=== PATIENT | female | born 1970 | race African-American/Black ===

== ENCOUNTER 2023-01-25 23:58 | Emergency (ER) | payer MEDICAID ==
[~2023-01-25] VITALS: Ht 160 cm; Wt 72.7 kg
[2023-01-26] MEDS ORDERED: IOHEXOL 350 MG/ML 100ML IJ ONE (00:22)
[2023-01-26 00:23] LABS: Basophils # (auto) 0.1 10 ^3/uL (0-0.2); Basophils % (auto) 0.5 % (0.0-2.0); Eosinophils # (auto) 0 10 ^3/uL (0-0.8); Eosinophils % (auto) 0.1 % (0.0-7.0); Hematocrit 44.7 % (36.0-46.0); Hemoglobin 15.4 g/dL (12.2-16.2); Lymphocytes # (auto) 2.6 10 ^3/uL (0.4-5.4); Lymphocytes % (auto) 17.5 % (10.0-50.0); Mean Corpuscular Hemoglobin 30.9 pg (28.0-32.0); Mean Corpuscular Hgb Conc. 34.4 g/dL (32.0-36.0); Mean Corpuscular Volume 89.9 fL (80.0-100.0); Monocytes # (auto) 0.8 10 ^3/uL (0-1.3); Monocytes % (auto) 5.2 % (0.0-12.0); Neutrophils # (auto) 11.2 10 ^3/uL (1.6-8.6); Neutrophils % (auto) 76.7 % (37.0-80.0); Red Blood Cells 4.97 10^6/uL (4.0-5.20); Red Cell Distribution Width 14.7 % (11.8-14.3); White Blood Cell 14.7 10^3/uL (4.4-10.8)
[2023-01-26] MEDS ORDERED: LORazepam 2MG/ML-1ML VIAL IV ONE (00:30)
[2023-01-26 00:45] LABS: BUN/Creatinine Ratio 11.8 (10.0-20.0); Calcium 11.9 mg/dL (8.5-10.1); Potassium 4.3 mmol/L (3.5-5.1)
[2023-01-26 00:48] LABS: Bilirubin, Total 0.3 mg/dL (0.2-1.0); Total Protein 8.9 g/dL (6.4-8.2)
[2023-01-26] MEDS ORDERED: DexAMETHasone SOD PHOS 10MG/1ML VIAL INJ IV ONE (02:30)
[2023-01-26 03:50] LABS: Alcohol, Urine < 3.0 mg/dL (0-10); Amphetamine Screen, Urine NEGATIVE (NEGATIVE); Barbiturate Scree,Urine NEGATIVE (NEGATIVE); Benzodiazephine Screen, Urine NEGATIVE (NEGATIVE); Cannabinoid Screen, Urine POSITIVE (NEGATIVE); Cocaine Screen, Urine POSITIVE (NEGATIVE)
[2023-01-26 03:58] LABS: Opiate Scree,Urine NEGATIVE (NEGATIVE); Phencyclidine Screen, Urine NEGATIVE (NEGATIVE)
[2023-01-26 04:11] LABS: Urine Bacteria FEW /hpf (None Seen); Urine Blood Negative /uL (Negative); Urine WBC 1 /hpf (0 - 5)
[2023-01-26 04:19] LABS: Urine Specific Gravity > 1.050 (1.001-1.035)
[2023-01-26 06:30] VITALS: BP 102/64
== END 2023-01-26 07:48 | disposition home or self-care (01) ==
LOC: ER 23:58
DX: T18.198A Other foreign object in esophagus causing other injury, initial encounter (principal); R13.10 Dysphagia, unspecified; Z79.899 Other long term (current) drug therapy; X58.XXXA Exposure to other specified factors, initial encounter; Y93.89 Activity, other specified; Y92.89 Other specified places as the place of occurrence of the external cause; Y99.8 Other external cause status
CPT/HCPCS: 36415; 70450; 70496; 71260; 74177; 80053; 80307; 81001; 84484; 85025; 87070; 87880; 93005; 99285; J1100; J2060; Q9967